=== PATIENT | male | born 1980 | race Caucasian/White ===

== ENCOUNTER 2017-05-19 23:12 | Emergency (ER) | payer OTHER ==
[~2017-05-19] VITALS: Ht 175.2 cm; Wt 129.3 kg
[~2017-05-19 23:12] MED LIST: AMARYL4 MG PO; ANAPROX DS550 MG PO; ATENOLOL25 MG PO; BIAXIN500 MG PO; D-1000 185 MG-11 TAB PO; EFFEXOR XR150 M1 PO; GLUCOPHAGE; HYDR25T PO; JANUVIA100 MG PO; LISINOPRIL5 MG PO; METFORMIN1000 MG PO; MOTRIN800 MG PO; NORVASC10 MG PO; PREDNISONE20 MG PO; ZITHROMAX250 MG PO; ZOLOFT100 MG PO; [UNRECOGNIZED DRUG - REMARK]
[2017-05-19] MEDS ORDERED: ZESTRIL20 MG PO (23:19)
[2017-05-19] MEDS ORDERED: HYDRALAZINE HC100 MG PO (23:19)
[2017-05-19] MEDS ORDERED: ATENOLOL100 M1 PO (23:20)
[2017-05-19] MEDS ORDERED: METFORMIN1000 MG PO (23:20)
[2017-05-19] MEDS ORDERED: GLIMEPIRIDE4 M1 PO (23:20)
[2017-05-19] MEDS ORDERED: GLUCOPHAGE500 M1 PO (23:20)
[2017-05-19] MEDS ORDERED: VITAMIN D-32000 UNI1 PO (23:21)
[2017-05-19] MEDS ORDERED: EFFEXOR-XR150 MG PO (23:21)
[2017-05-19] MEDS ORDERED: RANITIDINE 7575 MG PO (23:21)
== END 2017-05-20 00:36 | disposition home or self-care (01) ==
LOC: ED 23:12
DX: S40.021A Contusion of right upper arm, initial encounter (principal); I10 Essential (primary) hypertension; E11.9 Type 2 diabetes mellitus without complications; Z88.0 Allergy status to penicillin; Z79.899 Other long term (current) drug therapy; W22.8XXA Striking against or struck by other objects, initial encounter; Y93.01 Activity, walking, marching and hiking; Y92.9 Unspecified place or not applicable; Y99.9 Unspecified external cause status

== ENCOUNTER 2017-06-20 21:34 | Emergency (ER) | payer OTHER ==
[~2017-06-20] VITALS: Ht 175.2 cm; Wt 127.0 kg
[~2017-06-20 21:34] MED LIST changes: +ATENOLOL100 M1 PO; +EFFEXOR-XR150 MG PO; +GLIMEPIRIDE4 M1 PO; +GLUCOPHAGE500 M1 PO; +HYDRALAZINE HC100 MG PO; +RANITIDINE 7575 MG PO; +VITAMIN D-32000 UNI1 PO; +ZESTRIL20 MG PO
[2017-06-20 22:19] LABS: BILIRUBIN NEGATIVE (NEGATIVE); BLOOD NEGATIVE (NEGATIVE); CLARITY CLEAR (CLEAR); COLOR YELLOW (YELLOW); GLUCOSE 2+ (NEGATIVE); KETONE NEGATIVE (NEGATIVE); LEUKO ESTERASE NEGATIVE (NEGATIVE); NITRITE NEGATIVE (NEGATIVE); PH 6.5 (5.0-9.0); PROTEIN 2+ (NEGATIVE); SPECIFIC GRAVITY 1.025 (1.005-1.030)
[2017-06-20 22:36] LABS: URINE REFLEX COMMENT NO (NO); WBC 0-2 wbc/hpf (0-5)
[2017-06-20] MEDS ORDERED: HYDROCODONE BIT1 T11 PO (23:57)
[2017-06-20] MEDS ORDERED: MEDROL DOSEPAK4 MG PO (23:57)
[2017-06-20] MEDS ORDERED: CYCLOBENZAPRINE5 M3 PO (23:57)
== END 2017-06-21 00:15 | disposition home or self-care (01) ==
LOC: ED 21:34
PROVIDERS: Physician Assistant
DX: M53.87 Other specified dorsopathies, lumbosacral region (principal); M12.80 Other specific arthropathies, not elsewhere classified, unspecified site; M79.604 Pain in right leg; M25.552 Pain in left hip; M25.551 Pain in right hip; Z79.899 Other long term (current) drug therapy; Z88.0 Allergy status to penicillin

== ENCOUNTER 2017-07-31 18:04 | Emergency (ER) | payer OTHER ==
[~2017-07-31] VITALS: Ht 175.2 cm; Wt 127.0 kg
[~2017-07-31 18:04] MED LIST changes: +CYCLOBENZAPRINE5 M3 PO; +HYDROCODONE BIT1 T11 PO; +MEDROL DOSEPAK4 MG PO
[2017-07-31] MEDS ORDERED: PREDNISONE10 MG PO (18:33)
[2017-07-31] MEDS ORDERED: 'PARAFON FORTE500 M1 PO (18:33)
== END 2017-07-31 18:47 | disposition home or self-care (01) ==
LOC: ED 18:04
DX: G89.29 Other chronic pain (principal); M54.5 Low back pain; R03.0 Elevated blood-pressure reading, without diagnosis of hypertension; Z88.0 Allergy status to penicillin; Z79.899 Other long term (current) drug therapy

== ENCOUNTER 2017-09-28 17:23 | Emergency (ER) | payer OTHER ==
[~2017-09-28] VITALS: Wt 86.2 kg
[~2017-09-28 17:23] MED LIST changes: +'PARAFON FORTE500 M1 PO; +PREDNISONE10 MG PO
[2017-09-28] MEDS ORDERED: PREDNISONE10 MG PO (19:00)
[2017-09-28] MEDS ORDERED: 'PARAFON FORTE500 M1 PO (19:00)
== END 2017-09-28 19:03 | disposition home or self-care (01) ==
LOC: ED 17:23
DX: M25.512 Pain in left shoulder (principal); M25.511 Pain in right shoulder; M54.5 Low back pain; G89.29 Other chronic pain; R03.0 Elevated blood-pressure reading, without diagnosis of hypertension; F10.10 Alcohol abuse, uncomplicated; Z79.84 Long term (current) use of oral hypoglycemic drugs; Z79.899 Other long term (current) drug therapy

== ENCOUNTER 2017-10-16 19:47 | Emergency (ER) | payer OTHER ==
[~2017-10-16] VITALS: Ht 177.8 cm; Wt 117.9 kg
[2017-10-16] MEDS ORDERED: ROBAXIN-750750 MG PO (23:05)
== END 2017-10-16 22:57 | disposition home or self-care (01) ==
LOC: ED 19:47
DX: S39.012A Strain of muscle, fascia and tendon of lower back, initial encounter (principal); S46.912A Strain of unspecified muscle, fascia and tendon at shoulder and upper arm level, left arm, initial encounter; F17.200 Nicotine dependence, unspecified, uncomplicated; Z88.0 Allergy status to penicillin; Z79.899 Other long term (current) drug therapy; X58.XXXA Exposure to other specified factors, initial encounter; Y93.72 Activity, wrestling; Y92.89 Other specified places as the place of occurrence of the external cause; Y99.8 Other external cause status

== ENCOUNTER 2018-02-17 12:34 | Emergency (ER) | payer OTHER ==
[~2018-02-17] VITALS: Ht 175.2 cm; Wt 127.0 kg
[~2018-02-17 12:34] MED LIST changes: +ROBAXIN-750750 MG PO
[2018-02-17] MEDS ORDERED: NAPROSYN500 MG PO (12:36)
[2018-02-17] MEDS ORDERED: CHLORZOXAZONE500 M2 PO (12:37)
== END 2018-02-17 12:45 | disposition home or self-care (01) ==
LOC: ED 12:34
DX: G89.29 Other chronic pain (principal); M54.5 Low back pain; F17.200 Nicotine dependence, unspecified, uncomplicated; E11.9 Type 2 diabetes mellitus without complications; I10 Essential (primary) hypertension; E66.9 Obesity, unspecified; Z79.899 Other long term (current) drug therapy; Z88.0 Allergy status to penicillin

== ENCOUNTER 2018-07-25 20:05 | Emergency (ER) | payer SELFPAY ==
[~2018-07-25] VITALS: Ht 175.2 cm; Wt 127.0 kg
[~2018-07-25 20:05] MED LIST changes: +CHLORZOXAZONE500 M2 PO; +IBU800 MG PO; +MEDI-PATCH WIT1 EACH T; +NAPROSYN500 MG PO; +PREDNISONE50 MG PO
[2018-07-25] MEDS ORDERED: MEDROL DOSEPAK4 MG PO (21:34)
[2018-07-25] MEDS ORDERED: ULTRAM50 MG PO (21:34)
[2018-07-25] MEDS ORDERED: CYCLOBENZAPRINE5 M3 PO (21:34)
== END 2018-07-25 21:41 | disposition home or self-care (01) ==
LOC: ED 20:05
DX: M54.16 Radiculopathy, lumbar region (principal); M25.551 Pain in right hip; M25.552 Pain in left hip; Z88.0 Allergy status to penicillin; Z79.899 Other long term (current) drug therapy

== ENCOUNTER 2018-11-21 17:58 | Emergency (ER) | payer SELFPAY ==
[~2018-11-21] VITALS: Ht 175.2 cm; Wt 127.0 kg
[~2018-11-21 17:58] MED LIST changes: +ULTRAM50 MG PO
[2018-11-21] MEDS ORDERED: NAPROSYN500 MG PO (19:11)
[2018-11-21] MEDS ORDERED: MEDROL DOSEPAK4 MG PO (19:11)
== END 2018-11-21 19:30 | disposition home or self-care (01) ==
LOC: ED 17:58
DX: G89.29 Other chronic pain (principal); M54.5 Low back pain; Z88.0 Allergy status to penicillin; Z79.899 Other long term (current) drug therapy

== ENCOUNTER 2019-01-18 12:20 | Emergency (ER) | payer SELFPAY ==
[~2019-01-18] VITALS: Ht 175.2 cm; Wt 122.5 kg
[~2019-01-18 12:20] MED LIST changes: -RANITIDINE 7575 MG PO; +RANITIDINE75 MG PO
[2019-01-18 12:56] LABS: BASO # 0.1 10*3/uL (0.0-0.1); BASO % 0.7 % (0.0-1.0); EOS # 0.3 10*3/uL (0.0-0.4); EOS % 1.5 % (1.0-4.0); HEMATOCRIT 41.6 % (42.0-52.0); HEMOGLOBIN 13.9 g/dl (14.0-18.0); LYMPH # 2.2 10*3/uL (1.3-4.4); MEAN CELL VOLUME 88.3 fl (80.0-94.0); MEAN CORPUSCULAR HGB 29.5 pg (27.0-31.0); MEAN CORPUSCULAR HGB CONC 33.4 g/dl (33.0-37.0); MONO # 1.4 10*3/uL (0.1-1.0); MONO % 7.6 % (3.0-9.0); NEUT # 14.2 10*3/uL (2.3-7.9); NEUT % 77.6 % (47.0-73.0); PLATELET COUNT AUTOMATED 308 10*3/uL (130-400); RED BLOOD COUNT 4.71 10*6/uL (4.50-5.90); RED CELL DISTRI WIDTH 13.1 % (0-14.5); WHITE BLOOD COUNT 18.3 10*3/uL (4.8-10.8)
[2019-01-18 13:33] LABS: ALBUMIN 3.4 gm/dl (3.1-4.5); ALKALINE PHOSPHATASE 73 U/L (45-117); BUN 17 mg/dl (7-24); CHLORIDE 98 mmol/L (98-107); CREATININE 1.49 mg/dL (0.70-1.30); POTASSIUM 3.5 mmol/L (3.5-5.1); SGOT/AST 18 IU/L (3-35); SGPT/ALT 37 U/L (12-78); SODIUM 135 mmol/L (136-145); TOTAL PROTEIN 7.4 gm/dL (6.4-8.2)
[2019-01-18 16:06] LABS: BILIRUBIN 1+ (NEGATIVE); BLOOD NEGATIVE (NEGATIVE); CLARITY CLEAR (CLEAR); COLOR YELLOW (YELLOW); GLUCOSE TRACE (NEGATIVE); KETONE 1+ (NEGATIVE); LEUKO ESTERASE NEGATIVE (NEGATIVE); NITRITE NEGATIVE (NEGATIVE); SPECIFIC GRAVITY >= 1.030 (1.005-1.030)
[2019-01-18 16:17] LABS: BACTERIA 1+; MUCOUS 2+
[2019-06-23] MEDS ORDERED: METHOCARBAMOL500 M1 PO (20:44)
[2019-06-23] MEDS ORDERED: GLIPIZIDE10 M2 PO (20:45)
[2019-06-23] MEDS ORDERED: 'CLONIDINE0.1 MG PO (20:47)
[2019-06-23] MEDS ORDERED: PEPCID40 MG PO (20:49)
[2019-06-23] MEDS ORDERED: ANAPROX DS550 MG PO ×2 (21:14→21:49)
== END 2019-01-18 17:44 | disposition home or self-care (01) ==
LOC: ED 12:20
PROVIDERS: Physician Assistant
DX: B34.9 Viral infection, unspecified (principal); F17.200 Nicotine dependence, unspecified, uncomplicated; Z88.0 Allergy status to penicillin; Z79.899 Other long term (current) drug therapy; Z79.84 Long term (current) use of oral hypoglycemic drugs

== ENCOUNTER 2019-04-01 03:25 | Inpatient (IN) | payer SELFPAY ==
[2019-04-01] VITALS (9 sets, daily range): BP systolic 104–131; BP diastolic 57–77
[~2019-04-01] VITALS: Ht 177.8 cm; Wt 121.6 kg
--- NOTE | ~2019-04-01 | EKG ---
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
--- NOTE | ~2019-04-01 | ST ---
[place], [place] EXERCISE STRESS TEST REPORT NAME: SHANELLE TA [facility] #: [id number] UNIT #: [id number] ROOM: 402 DOCTOR: NIVIA MCGILL MD BIRTHDATE: [birth year] DOS: 04/02/2019 LEXISCAN STRESS EKG REPORT REFERRING PHYSICIAN: Dr. Segundo. INDICATION: Central chest pain. The patient underwent standard protocol Lexiscan stress EKG. The patient's baseline EKG is normal sinus rhythm, nonspecific ST-T wave changes with a heart rate of 74, blood pressure 124/70 at rest. The patient's peak heart rate is 99 with a blood pressure of 126/70. The patient had some mild chest discomfort. No ischemic changes, no arrhythmias. SUMMARY OF FINDINGS: Unremarkable Lexiscan stress EKG. Please see separate report for perfusion scan imaging results. NIVIA MCGILL MD CM:STRESS:EXERCISE STRESS TEST REPORT [id number] NIVIA MCGILL MD
--- NOTE | ~2019-04-01 | EKG ---
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
--- NOTE | ~2019-04-01 | EKG ---
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
[2019-04-01 03:46] LABS: BASO # 0.1 10*3/uL (0.0-0.1); BASO % 0.5 % (0.0-1.0); EOS % 0.2 % (1.0-4.0); HEMATOCRIT 41.7 % (42.0-52.0); HEMOGLOBIN 14.2 g/dl (14.0-18.0); LYMPH # 2.4 10*3/uL (1.3-4.4); LYMPH % 12.9 % (27.0-41.0); MEAN CELL VOLUME 87.8 fl (80.0-94.0); MEAN CORPUSCULAR HGB 29.9 pg (27.0-31.0); MEAN CORPUSCULAR HGB CONC 34.1 g/dl (33.0-37.0); MEAN PLATELET VOLUME 9.9 fl (9.6-12.3); MONO # 1.2 10*3/uL (0.1-1.0); MONO % 6.4 % (3.0-9.0); NEUT # 14.6 10*3/uL (2.3-7.9); NEUT % 79.4 % (47.0-73.0); PLATELET COUNT AUTOMATED 390 10*3/uL (130-400); RED BLOOD COUNT 4.75 10*6/uL (4.50-5.90); RED CELL DISTRI WIDTH 13.6 % (0-14.5); WHITE BLOOD COUNT 18.4 10*3/uL (4.8-10.8)
[2019-04-01 04:31] LABS: ALBUMIN 4.2 gm/dl (3.1-4.5); ALKALINE PHOSPHATASE 64 U/L (45-117); BUN 30 mg/dl (7-24); CHLORIDE 106 mmol/L (98-107); CREATININE 2.04 mg/dL (0.70-1.30); POTASSIUM 4.5 mmol/L (3.5-5.1); SGOT/AST 24 IU/L (3-35); SGPT/ALT 60 U/L (12-78); SODIUM 139 mmol/L (136-145); TOTAL PROTEIN 8.1 gm/dL (6.4-8.2)
[2019-04-01 04:41] LABS: TROPONIN I < 0.015 ng/ml (<0.045)
[2019-04-01 05:09] LABS: BILIRUBIN NEGATIVE (NEGATIVE); BLOOD NEGATIVE (NEGATIVE); CLARITY SL CLOUDY (CLEAR); COLOR YELLOW (YELLOW); GLUCOSE NEGATIVE (NEGATIVE); KETONE TRACE (NEGATIVE); LEUKO ESTERASE TRACE (NEGATIVE); NITRITE NEGATIVE (NEGATIVE); PH 5.5 (5.0-9.0); SPECIFIC GRAVITY >= 1.030 (1.005-1.030); UROBILINOGEN 0.2 E.U./dl (0.2-1.0)
[2019-04-01 05:16] LABS: BACTERIA 2+; MUCOUS 2+; RBC 0-2 rbc/hpf (0-2)
[2019-04-01 05:22] LABS: URINE AMPHETAMINES > 1000 (1000ng/ml); URINE BARBITURATES < 200 (200ng/ml); URINE BENZODIAZEPINES < 200 (200ng/ml); URINE CANNABINOIDS (THC) < 50 (50ng/ml); URINE COCAINE < 300 (300ng/ml); URINE METHADONE < 300 (300ng/ml); URINE OPIATES < 300 (300ng/ml)
[2019-04-01 05:26] LABS: URINE PHENCYCLIDINE < 25 (25ng/ml)
--- NOTE | 2019-04-01 05:51 | NUR ---
PT RETURNED FROM CT SCAN AT THIS TIME. 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 PT VOICED UNDERSTANDING.---LUX JAIME RN
--- NOTE | 2019-04-01 06:42 | NUR ---
A 80, admitted to 4E, under the services of AMI Mohan DO with a diagnosis of CHEST PAIN, SOB, ARF. Chief complaint is CHEST PAIN. Patient arrived via stretcher from ER. Monitor applied. Initial assessment completed. Vital signs taken and recorded. AMI MOHAN DO notified of admission to the unit. Orders received. See assessment for past medical history, medications and allergies. Patient and/or family oriented to unit. [facility] visitation policy reviewed. Clothing/patient valuable form completed. SAÚL AGUILAR
--- NOTE | 2019-04-01 06:47 | NUR ---
DR. WILSON NOTIFIED OF CRITICAL LACTIC ACID OF 4.3. NEW ORDERS RECEIVED.
--- NOTE | 2019-04-01 09:00 | NUR ---
Research Dietitian in to talk to patient. Patient states lives at home with girlfriend. There are few steps in the home. Physician: corina batista [facility]: [facility] Patient's level of ADLs: INDEPENDENT Patient has working utilities: all working DME: none Follow-up physician's appointment after d/c: will be made by hospitalist nurse director upon discharge Does patient want to access PORTAL?: no Discharge plan discussed with patient, patient lives at home, is independent in adls and ambulation, patient states he will be going home when able and denies any home needs. AMARJIT DELONG
--- NOTE | 2019-04-01 09:47 | NUR ---
DR. BUTLER NOTIFIED PATIENT WANTING SOMETHING FOR BACK PAIN RATED AT 9 OUT OF 10.
--- NOTE | 2019-04-01 10:37 | NUR ---
MEDICATED WITH NORCO PER ORDER AND REQUEST.
--- NOTE | 2019-04-01 11:30 | NUR ---
PATIENT STATED NORCO WAS EFFECTIVE.
--- NOTE | 2019-04-01 14:10 | NUR ---
NEHA IN CARDIOLOGY TOOK INFO FOR DR. MCGILL CONSULT.
--- NOTE | 2019-04-01 17:46 | NUR ---
medicated with zofran as per order and request.
--- NOTE | 2019-04-01 21:53 | NUR ---
PATIENT RECEIVED NORCO FOR PAIN IN CHEST RATED 7/10.
[2019-04-02] VITALS: BP 119/70
--- NOTE | 2019-04-02 01:14 | NUR ---
PT MEDICATED WITH PO RESTORIL PER PRN ORDER WITH SMALL SIPS OF WATER FOR C/O SLEEPLESSNESS. WILL MONITOR. PATIENT REMINDED OF NPO STATUS DUE TO STRESS TEST. VERBALIZES UNDERSTANDING.
--- NOTE | 2019-04-02 03:44 | NUR ---
PO NORCO ADMINISTERED WITH SMALL SIPS OF WATER FOR C/O PAIN IN MID BACK RATED 6/10. WILL MONITOR. CALL LIGHT IN REACH.
--- NOTE | 2019-04-02 04:51 | NUR ---
EARLIER MEDICATIONS APPEAR EFFECTIVE. PT ASLEEP IN BED. RESPIRATIONS EASY. NO S/S OF DISTRESS NOTED. WILL MONITOR. CALL LIGHT IN REACH.
[2019-04-02 06:23] LABS: BASO # 0.1 10*3/uL (0.0-0.1); BASO % 0.7 % (0.0-1.0); EOS # 0.4 10*3/uL (0.0-0.4); EOS % 3.1 % (1.0-4.0); HEMOGLOBIN 12.7 g/dl (14.0-18.0); LYMPH # 3.4 10*3/uL (1.3-4.4); LYMPH % 28.4 % (27.0-41.0); MEAN CORPUSCULAR HGB CONC 32.6 g/dl (33.0-37.0); MEAN PLATELET VOLUME 9.9 fl (9.6-12.3); MONO # 0.9 10*3/uL (0.1-1.0); MONO % 7.6 % (3.0-9.0); NEUT # 7.2 10*3/uL (2.3-7.9); NEUT % 59.5 % (47.0-73.0); PLATELET COUNT AUTOMATED 298 10*3/uL (130-400); RED BLOOD COUNT 4.23 10*6/uL (4.50-5.90); WHITE BLOOD COUNT 12.1 10*3/uL (4.8-10.8)
[2019-04-02 06:26] LABS: MEAN CELL VOLUME 92.2 fl (80.0-94.0)
[2019-04-02 06:27] LABS: ALBUMIN 3.7 gm/dl (3.1-4.5); ALKALINE PHOSPHATASE 59 U/L (45-117); BUN 25 mg/dl (7-24); CHLORIDE 107 mmol/L (98-107); CHOLESTEROL 130 mg/dL (<200); CREATININE 1.53 mg/dL (0.70-1.30); FREE T4 1.06 ng/dl (0.76-1.46); HDL CHOLESTEROL 40 mg/dl (40-60); LDL CHOLESTEROL 65 mg/dL (9-159); PHOSPHOROUS 3.6 mg/dL (2.5-4.9); POTASSIUM 4.3 mmol/L (3.5-5.1); SGOT/AST 17 IU/L (3-35); SGPT/ALT 43 U/L (12-78); SODIUM 139 mmol/L (136-145); THYROID STIM HORMONE (HS) 0.872 uIU/ml (0.358-4.75); TOTAL PROTEIN 7.5 gm/dL (6.4-8.2); TRIGLYCERIDES 124 mg/dl (<150); VLDL CHOLESTEROL 25 mg/dL (6-40)
[2019-04-02 08:00] VITALS: BP 118/68
[2019-04-02 08:02] LABS: VITAMIN D, 25-HYDROXY 21.2 ng/mL (30-100)
--- NOTE | 2019-04-02 09:00 | NUR ---
case management visits with patient, patient states he will be going home when able, discussed with him not having any insurance and being able to pay for prescriptions, also educated him on the hospital's program to help with prescription costs, patient would like his scripts written for the hospital pharmacy. case management notified hospitalist nurse director
--- NOTE | 2019-04-02 09:00 | NUR ---
Brake Adjuster in to talk to patient. Patient states lives at home with his fiance and children. There are 3 steps in the home. Physician: Aaron Ramírez [facility] Home health services: none Patient's level of ADLs: INDEPENDENT Patient has working utilities: yes DME: none Follow-up physician's appointment after d/c: will be made by the hospitalist nurse director upon discharge Does patient want to access PORTAL?: no Discharge plan discussed with patient. He lives at home with his fiance and children. He is independent in his ADLs and ambulation. Discussed home health care services and he denies any home needs at this time. When medically stable he will be discharged to home. NURIA MADRID
--- NOTE | 2019-04-02 10:45 | NUR ---
IN CARDIAC REHAB FOR STRESS TEST.
--- NOTE | 2019-04-02 11:15 | NUR ---
INFORMED CONSENT OBTAINED FOR LEXISCAN NUCLEAR STRESS TEST WITH DR. MCGILL. RESTING EKG NSR WITH A RESTING HR OF 74 WITH BP OF 124/72. LUNGS CLEAR WITH SPO2 OF 95% ON ROOM AIR. PT COMPLETED A 1:00 LEXISCAN PROTOCOL RECEIVING LEXISCAN 0.4 MG IV OVER 10 SECONDS. HAD NO EKG CHANGES. DID C/O CHEST DISCOMFORT AND FEELING OF SHORTNESS OF BREATH THAT WAS RELIEVED IN RECOVERY. HAD A PEAK HR OF 99 WITH BP OF 120/60. LAST RECOVERY HR OF 90 WITH BP OF 126/70. AWAITING SCANNING IN STABLE CONDITION.
--- NOTE | 2019-04-02 13:04 | NUR ---
MEDICATED WITH NORCO PER ORDER AND REQUEST FOR BACK PAIN.
--- NOTE | 2019-04-02 15:52 | NUR ---
NORCO GIVEN EARLIER EFFECTIVE. PATIENT SLEEPING.
--- NOTE | 2019-04-02 18:08 | NUR ---
PATIENT DISCHARGED TO HOME WITH BELONGINGS.
[2019-06-23] MEDS ORDERED: METHOCARBAMOL500 M1 PO (20:44)
[2019-06-23] MEDS ORDERED: GLIPIZIDE10 M2 PO (20:45)
[2019-06-23] MEDS ORDERED: 'CLONIDINE0.1 MG PO (20:47)
[2019-06-23] MEDS ORDERED: PEPCID40 MG PO (20:49)
[2019-06-23] MEDS ORDERED: ANAPROX DS550 MG PO ×2 (21:14→21:49)
== END 2019-04-02 18:08 | disposition home or self-care (01) | DRG 682 ==
LOC: ED 03:25 → EDHOLD 05:37 → 4E 05:37
PROVIDERS: Family Medicine; Student in an Organized Health Care Education/Training Program; ADMIT Emergency Medicine
PROC: 4A02XM4 Measurement of Cardiac Total Activity, External Approach (ICD-10-PCS; principal; 2019-04-02)
PROC: 3E073KZ Introduction of Other Diagnostic Substance into Coronary Artery, Percutaneous Approach (ICD-10-PCS; principal; 2019-04-02)
DX: N17.0 Acute kidney failure with tubular necrosis (principal); R65.11 Systemic inflammatory response syndrome (SIRS) of non-infectious origin with acute organ dysfunction; E87.2 Acidosis; M94.0 Chondrocostal junction syndrome [Tietze]; R07.9 Chest pain, unspecified; K21.9 Gastro-esophageal reflux disease without esophagitis; I10 Essential (primary) hypertension; X58.XXXA Exposure to other specified factors, initial encounter; E66.9 Obesity, unspecified; S40.021A Contusion of right upper arm, initial encounter; E55.9 Vitamin D deficiency, unspecified; E11.9 Type 2 diabetes mellitus without complications; M54.9 Dorsalgia, unspecified; F15.10 Other stimulant abuse, uncomplicated; Z88.0 Allergy status to penicillin; M54.16 Radiculopathy, lumbar region; Z72.89 Other problems related to lifestyle; Z82.49 Family history of ischemic heart disease and other diseases of the circulatory system; Z79.84 Long term (current) use of oral hypoglycemic drugs; Z79.899 Other long term (current) drug therapy; Y93.89 Activity, other specified; Y92.89 Other specified places as the place of occurrence of the external cause; Y99.8 Other external cause status; Z68.39 Body mass index [BMI] 39.0-39.9, adult

== ENCOUNTER → 2019-06-04 | Outpatient (CLI) | payer SELFPAY ==
[~2019-06-04] MED LIST changes: +'CLONIDINE0.1 MG PO; +GLIPIZIDE10 M2 PO; +METHOCARBAMOL500 M1 PO; +PEPCID40 MG PO
[2019-06-04 14:09] LABS: HEMATOCRIT 41.8 % (42.0-52.0); HEMOGLOBIN 13.5 g/dl (14.0-18.0); MEAN CELL VOLUME 89.5 fl (80.0-94.0); MEAN CORPUSCULAR HGB 28.9 pg (27.0-31.0); MEAN CORPUSCULAR HGB CONC 32.3 g/dl (33.0-37.0); MEAN PLATELET VOLUME 9.5 fl (9.6-12.3); RED BLOOD COUNT 4.67 10*6/uL (4.50-5.90); RED CELL DISTRI WIDTH 13.1 % (0-14.5); WHITE BLOOD COUNT 9.8 10*3/uL (4.8-10.8)
[2019-06-04 14:30] LABS: ALBUMIN 3.7 gm/dl (3.1-4.5); ALKALINE PHOSPHATASE 69 U/L (45-117); BUN 13 mg/dl (7-24); CHLORIDE 106 mmol/L (98-107); CHOLESTEROL 125 mg/dL (<200); CREATININE 0.88 mg/dL (0.70-1.30); HDL CHOLESTEROL 29 mg/dl (40-60); LDL CHOLESTEROL 63 mg/dL (9-159); POTASSIUM 4.1 mmol/L (3.5-5.1); SGOT/AST 25 IU/L (3-35); SGPT/ALT 53 U/L (12-78); SODIUM 138 mmol/L (136-145); TOTAL PROTEIN 7.3 gm/dL (6.4-8.2); TRIGLYCERIDES 163 mg/dl (<150); VLDL CHOLESTEROL 33 mg/dL (6-40)
== END | disposition home or self-care (01) ==
LOC: LAB 13:33
PROVIDERS: Registered Nurse Flight
DX: E11.65 Type 2 diabetes mellitus with hyperglycemia (principal); N17.9 Acute kidney failure, unspecified

== ENCOUNTER 2019-09-02 16:50 | Emergency (ER) | payer SELFPAY ==
[~2019-09-02] VITALS: Ht 175.2 cm; Wt 127.0 kg
[2019-09-02 18:31] LABS: BILIRUBIN NEGATIVE (NEGATIVE); BLOOD NEGATIVE (NEGATIVE); CLARITY CLEAR (CLEAR); COLOR YELLOW (YELLOW); GLUCOSE 3+ (NEGATIVE); KETONE NEGATIVE (NEGATIVE); LEUKO ESTERASE NEGATIVE (NEGATIVE); NITRITE NEGATIVE (NEGATIVE); PH 6.5 (5.0-9.0); UROBILINOGEN 0.2 E.U./dl (0.2-1.0)
[2019-09-02 18:41] LABS: EPITHELIAL CELLS 0-2; MUCOUS TRACE; RBC 0-2 rbc/hpf (0-2)
[2019-09-02] MEDS ORDERED: NAPROSYN500 MG PO (19:48)
== END 2019-09-02 19:18 | disposition home or self-care (01) ==
LOC: ED 16:50
PROVIDERS: Physician Assistant
DX: M54.5 Low back pain (principal); G89.29 Other chronic pain; I10 Essential (primary) hypertension; E11.9 Type 2 diabetes mellitus without complications; Z88.0 Allergy status to penicillin; Z79.899 Other long term (current) drug therapy

== ENCOUNTER 2019-11-02 15:32 | Emergency (ER) | payer OTHER ==
[~2019-11-02] VITALS: Ht 175.2 cm; Wt 127.0 kg
[2019-11-02] MEDS ORDERED: Motrin,Rufen800 MG PO (18:17)
[2019-11-02] MEDS ORDERED: CYCLOBENZAPRINE5 M3 PO (18:17)
== END 2019-11-02 18:41 | disposition home or self-care (01) ==
LOC: ED 15:32
DX: S00.03XA Contusion of scalp, initial encounter (principal); S60.512A Abrasion of left hand, initial encounter; S60.511A Abrasion of right hand, initial encounter; M25.512 Pain in left shoulder; J45.909 Unspecified asthma, uncomplicated; I10 Essential (primary) hypertension; E11.9 Type 2 diabetes mellitus without complications; Z88.0 Allergy status to penicillin; Z79.899 Other long term (current) drug therapy; V59.49XA Driver of pick-up truck or van injured in collision with other motor vehicles in traffic accident, initial encounter; Y93.I9 Activity, other involving external motion; Y92.488 Other paved roadways as the place of occurrence of the external cause; Y99.8 Other external cause status

== ENCOUNTER 2020-01-08 18:57 | Emergency (ER) | payer SELFPAY ==
[~2020-01-08] VITALS: Ht 175.2 cm; Wt 127.0 kg
[~2020-01-08 18:57] MED LIST changes: +Motrin,Rufen800 MG PO
== END 2020-01-08 20:44 | disposition home or self-care (01) ==
LOC: ED 18:57
DX: S63.501A Unspecified sprain of right wrist, initial encounter (principal); J45.909 Unspecified asthma, uncomplicated; I10 Essential (primary) hypertension; E11.9 Type 2 diabetes mellitus without complications; F17.200 Nicotine dependence, unspecified, uncomplicated; Z88.0 Allergy status to penicillin; Z79.899 Other long term (current) drug therapy; W18.49XA Other slipping, tripping and stumbling without falling, initial encounter; Y93.89 Activity, other specified; Y92.89 Other specified places as the place of occurrence of the external cause; Y99.8 Other external cause status

== ENCOUNTER 2020-08-26 18:30 | Emergency (ER) | payer SELFPAY ==
[~2020-08-26] VITALS: Ht 175.2 cm; Wt 117.9 kg
[2020-08-26] MEDS ORDERED: MEDROL DOSEPAK4 MG PO (20:59)
== END 2020-08-26 21:13 | disposition home or self-care (01) ==
LOC: ED 18:30
DX: M51.37 Other intervertebral disc degeneration, lumbosacral region (principal); I10 Essential (primary) hypertension; E11.9 Type 2 diabetes mellitus without complications; J45.909 Unspecified asthma, uncomplicated; F17.200 Nicotine dependence, unspecified, uncomplicated; Z88.0 Allergy status to penicillin; Z79.899 Other long term (current) drug therapy; Z79.2 Long term (current) use of antibiotics

== ENCOUNTER 2025-10-12 01:36 | Emergency (ER) | payer SELFPAY ==
[~2025-10-12] VITALS: Ht 175.2 cm; Wt 113.4 kg
[2025-10-12] MEDS ORDERED: CLINDAMYCIN HCL 300 MG CAPSULE PO ONE (02:00)
[2025-10-12] MEDS ORDERED: Acetaminophen/Hydrocodone 5 MG/325 MG TABLET PO ONE (02:00)
[2025-10-12] MEDS ORDERED: CLINDAMYCIN HC300 MG PO (02:01)
[2025-10-12] MEDS ORDERED: DICLOFENAC SOD75 MG PO ×2 (02:01→02:16)
== END 2025-10-12 02:17 | disposition home or self-care (01) ==
LOC: ED 01:36
DX: K08.89 Other specified disorders of teeth and supporting structures (principal); F17.220 Nicotine dependence, chewing tobacco, uncomplicated; Z88.0 Allergy status to penicillin; Z79.899 Other long term (current) drug therapy; Z79.84 Long term (current) use of oral hypoglycemic drugs; Z98.890 Other specified postprocedural states